=== PATIENT | female | born 2005 | race Two or more races ===

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

== ENCOUNTER 2025-01-03 05:11 | Inpatient (IN) | payer MEDICAID, SELFPAY ==
[2025-01-03] VITALS (251 sets, daily range): BP systolic 94–206; BP diastolic 51–106; PULSE 55–127; RESP 17–19; TEMP 36.5–36.9; O2SAT 88–100; BMI 25.3
[2025-01-03] MEDS: RINGERS LACTATED 1000 ML 1,000 ML 100 ML IV ×4 (05:38→13:07)
[2025-01-03 05:55] LABS: Basophils # (Auto) 0.1 Thou/mm3 (0.0-0.2); Basophils % (Auto) 1 % (0-2.5); Eosinophils # (Auto) 0.3 Thou/mm3 (0.0-0.5); Eosinophils % (Auto) 3 % (0-10); Hematocrit 28.2 % (36.0-46.0); Hemoglobin 9.0 g/dL (12.0-16.0); Immature Granulocytes Auto 0.04 Thou/mm3 (0.00-0.00); Lymphocytes # (Auto) 2.6 Thou/mm3 (1.0-4.8); Lymphocytes % (Auto) 30 % (10-50); Mean Corpuscular HGB Conc 31.9 g/dl (31.0-37.0); Mean Corpuscular Hemoglobin 26.5 pg (25.0-35.0); Mean Corpuscular Volume 83 fL (80-100); Monocytes # (Auto) 0.6 Thou/mm3 (0.0-0.8); Monocytes % (Auto) 7 % (0-12); Neutrophils # (Auto) 4.9 Thou/mm3 (1.8-7.7); Neutrophils % (Auto) 58 % (37-80); Nucleated Red Blood Cell # 0.00 Thou/mm3 (0.00-0.00); Nucleated Red Blood Cell % 0 /100 WBC (0); Platelet Count 376 Thou/mm3 (140-440); RDW Standard Deviation 48.1 fL (36.4-46.3); Red Blood Count 3.39 Miln/mm3 (4.00-5.20); White Blood Count 8.4 Thou/mm3 (4.5-11.0)
[2025-01-03 06:11] LABS: Amphetamine/Metham Scrn,Ur OB Negative (Negative); Benzoylecgonine Screen, Ur OB Negative (Negative); Opiate Screen,Urine OB Negative (Negative); THC Screen,Urine OB Negative (Negative)
[2025-01-03 06:43] LABS: Syphilis Nonreactive (Nonreactive)
--- NOTE | 2025-01-03 07:57 | PD.LDHP ---
Documentation for date of: 01/03/25 OB Labor/Induct. HPI History of Present Illness : 1 Term pregnancies: 0 pregnancies: 0 Living children: 0 History of Abortions: Spontaneous and Elective: 0 History of sections: No History of : No Date of last menstrual period: 04/05/24 JOHN: 01/10/25 Gestational age based on last menstrual period: 39 History of present illness: H and P dictated on STAT line #9 in [employer] : [id number] Labs Labs: Positive: Rubella Titre, Negative: RPR, Hepatitis B, HIV, Chlamydia, Gonorrhea and Group Beta Strep and Unknown: Herpes Type 1, Herpes Type 2 and Covid-19 Past Medical History Surgical History SURGICAL: Negative Section Meds Home Medications and Allergies Home Medications ?Medication ?Instructions ?Recorded ?Confirmed ?Type acetaminophen 325 mg tablet 325 mg PO Q6H PRN pain 12/21/24 01/03/25 History (Aminofen) Held on 01/03/25. Instructions: patient states she is currently not taking vitamins with calcium 1 tab PO Q24H 12/26/24 01/03/25 History no.72-iron 27 mg-folic acid 1 mg tablet ( Plus (calcium carbonate)) Allergies Allergy/AdvReac Type Severity Reaction Status Date / Time No Known Allergies Allergy Verified 12/26/24 00:15 OB Exam Physical Exam Vital signs: Temp Pulse Resp BP Pulse Ox 97.9 F 63 18 124/82 100 01/03/25 07:10 01/03/25 07:26 01/03/25 07:10 01/03/25 07:26 01/03/25 07:56 OB Results Labs 01/03/25 05:35 Labs: Short CBC 01/03/25 Range/Units 05:35 WBC 8.4 (4.5-11.0) Thou/mm3 Hgb 9.0 L (12.0-16.0) g/dL Hct 28.2 L (36.0-46.0) % Plt Count 376 D (140-440) Thou/mm3
--- NOTE | 2025-01-03 12:10 | PD.LDPN ---
Documentation for date of: 01/03/25 OB Labor Progress Note Pain Control Comments: None Pelvic Exam Dilation (cm): 6.0 Effacement (%): 80 station: -1 Amniotic membrane status: Ruptured Comments: Clear fluid Contractions Monitor mode: External Contraction frequency: 1-3.5 Contraction intensity: Mild Status status: Category l Assessment and Plan Comments: Active Labor Anticipate
--- NOTE | 2025-01-03 14:56 | PD.LDPN ---
Documentation for date of: 01/03/25 OB Labor Progress Note Pain Control Comments: Epidural Pelvic Exam Dilation (cm): 8 Effacement (%): 80 station: +1 Amniotic membrane status: Ruptured Contractions Monitor mode: External Contraction frequency: 2-3 Contraction intensity: Strong Status status: Category ll Comments: Accelerate with scalp stimulation Assessment and Plan Comments: IUPC placed for amnioinfusion Adequate MVUs FSE applied Variability present Anticipate .
[2025-01-03] MEDS: LIDOCAINE HCL 1% 20 ML VIAL INFL (16:21)
[2025-01-03] MEDS: MINERAL OIL 30 ML UDC TOP (16:21)
[2025-01-03] MEDS: IBUPROFEN TAB 400 MG TABLET 800 MG PO (16:21)
[2025-01-03] MEDS: BENZO/LANO/ALOE (Dermoplast) 60 GM CAN 1 SPRAY TOP (16:21)
[2025-01-03] MEDS: OXYTOCIN in NS 20 units 20 UNIT/1,000 ML BAG 125 UNIT IV ×2 (16:22→21:48)
--- NOTE | 2025-01-03 18:17 | OBDSUM_ITS ---
Data ([facility]) Data Hx Section: No : 1 Term: 0 : 0 Livin Abortions: Spontaneous & Theraputic: 0 Delivery Data ([facility]iz[place]) Labor Data Initiation of labor: Induction Induction/Augmentation Agent: Cytotec-PO and Artificial ROM ROM date: 01/03/25 ROM time: 12:09 Amniotic membrane rupture type: Artificial Amniotic fluid description: Clear Delivery Data EDC: 01/10/25 EDC calculated by:: LMP/early US confirmation Onset of labor date: 01/03/25 Onset of labor time: 13:00 Complete dilation date: 01/03/25 Complete dilation time: 15:34 [place] delivery date: 01/03/25 delivery time: 15:55 Gestational age (weeks): 39 Gestational age (days): 0 Placenta delivery date: 01/03/25 Placenta delivery time: 16:04 Stage 1 total time: Labor - Stage 1 Duration 2 hours and 34 minutes Delivered by: Chadwick Mcbride Delivery nurse: LE Villalta Neworn nurse: LE Maldonado Director Of Human Resources at delivery: No Support person(s) at delivery: FOB Other staff at delivery: LE [place] Delivery Method Delivery method: Normal Vaginal Delivery Presentation: Vertex Anesthesia Type Anesthesia Type: Local and Epidural Placenta Placenta delivery description: Spontaneous Cord blood sent to lab: Yes cord blood collection: Cord Blood Type Lacerations #1: Perineal: 2nd degree Perineal repair Sutures used for repair: 3.0 Chromic EBL Estimated blood loss (ml): 150 Complications Complications: None [place] Data (Elizalde) [place] Data order: 1 's gender: Female weight (gms): 5 lb 14.181 oz Weight (pounds): 5 lbs and 14.2 ozs 1 minute: 9 5 minutes: 9
--- NOTE | 2025-01-03 18:19 | PD.LDDS ---
DS: Providers Provider Date of admission: 01/03/25 05:11 Primary care physician: Physician No Primary/Family Admitting Provider: Chadwick Mcbride MD Attending Provider on Admission: Chadwick Mcbride MD Attending Provider on DC: Chadwick Mcbride MD Discharging Provider: Chadwick Mcbride MD DS: Diagnosis Problem List Completed Was Problem List Reviewed/Reconciled?: Yes Summary/Hosp Course Brief History: H and P dictated on STAT line #9 in [employer] : [id number] Peripartum Data Delivery Method: Normal Vaginal Delivery Laceration Description: see Delivery Summary 1: Disposition of : home Time Spent with Patient Time attestation: Total time spent providing and/or coordinating discharge services: Exam Vital Signs Temp Pulse Resp BP Pulse Ox O2 Del Method 98.1 F 73 17 117/76 99 Room Air 01/03/25 18:00 01/03/25 18:12 01/03/25 18:00 01/03/25 18:12 01/03/25 18:18 01/03/25 18:00 Discharge Plan Plan Patient Disposition: HOME (Self Care) Patient condition on transfer: Stable Prescriptions/Referrals Prescriptions/Med Rec: New ibuprofen 600 mg tablet 600 mg PO QID PRN (Reason: pain) Qty: 30 0RF Continued Plus (calcium carb) 27 mg iron- 1 mg tablet 1 tab PO Q24H Patient Comments: Take 1 tablet by mouth once a day Discontinued pantoprazole 40 mg tablet,delayed release (DR/EC) 40 mg PO QDAY 30 Days Qty: 30 1RF acetaminophen [Aminofen] 325 mg tablet 325 mg PO Q6H PRN (Reason: pain) Referrals: No Primary/Family,Physician [Primary Care Provider] Patient/Caregiver Discharge Instructions Discharge Activity: activity as tolerated Other Discharge Activity Instructions:: Follow up office 6 weeks. Print Language: Indonesian Stand Alone Forms: Irina Award Info., Patient Portal Info Letter Discharge Order Discharge Orders: Discharge (Routine); Ordered 01/04/25 Ordered By: Chadwick Mcbride Planned Discharge Date 01/04/25
--- NOTE | 2025-01-03 19:39 | PC.NURSE ---
Assisted patient with perineal care, changed gown, urine output of 700 cc. Accompanied patient, ambulated and move to room 465 with all her belongings. Attended needs and provided safety and comfort.
[2025-01-03 22:27] LABS: Basophils # (Auto) 0.1 Thou/mm3 (0.0-0.2); Basophils % (Auto) 0 % (0-2.5); Eosinophils # (Auto) 0.0 Thou/mm3 (0.0-0.5); Eosinophils % (Auto) 0 % (0-10); Hematocrit 27.1 % (36.0-46.0); Immature Granulocytes Auto 0.07 Thou/mm3 (0.00-0.00); Lymphocytes # (Auto) 2.1 Thou/mm3 (1.0-4.8); Lymphocytes % (Auto) 13 % (10-50); Mean Corpuscular HGB Conc 31.7 g/dl (31.0-37.0); Mean Corpuscular Hemoglobin 26.1 pg (25.0-35.0); Mean Corpuscular Volume 82 fL (80-100); Monocytes # (Auto) 1.0 Thou/mm3 (0.0-0.8); Monocytes % (Auto) 6 % (0-12); Neutrophils # (Auto) 12.5 Thou/mm3 (1.8-7.7); Neutrophils % (Auto) 80 % (37-80); Nucleated Red Blood Cell # 0.00 Thou/mm3 (0.00-0.00); Nucleated Red Blood Cell % 0 /100 WBC (0); Platelet Count 301 Thou/mm3 (140-440); RDW Standard Deviation 47.3 fL (36.4-46.3); Red Blood Count 3.30 Miln/mm3 (4.00-5.20); White Blood Count 15.8 Thou/mm3 (4.5-11.0)
[2025-01-03 22:28] LABS: Hemoglobin 8.6 g/dL (12.0-16.0)
[2025-01-04 00:30] VITALS: PULSE 69; RESP 18; TEMP 37.2; O2SAT 98
[2025-01-04 03:35] VITALS: BP 119/71; PULSE 85; RESP 18; TEMP 36.9; O2SAT 98
[2025-01-04] MEDS: IBUPROFEN TAB 400 MG TABLET 800 MG PO (04:01)
[2025-01-04 08:00] VITALS: BP 111/70; PULSE 87; RESP 16; TEMP 36.8; O2SAT 98
--- NOTE | 2025-01-04 09:01 | ESPR_ITS ---
RE: ADRIANA TORRES : 2005 DATE OF SERVICE: 01/04/2025 SUBJECTIVE: day #1, the patient denies any problem or complaint. She is voiding and ambulating and tolerating a regular diet and passing flatus. She denies any excessive vaginal bleeding. She denies any dizziness or lightheadedness. She denies any chest pain, palpitations, shortness of breath, or lower extremity pain. OBJECTIVE: Vital Signs: Blood pressure 119/71, heart rate 85, respirations 18, temperature 98.5, pulse oximetry is 98% on room air. Lungs: Clear to auscultation bilaterally. Heart: Regular rate and rhythm. Abdomen: Fundus is firm. Extremities: Nontender. LABORATORY DATA: Hemoglobin pre-delivery is 9, post delivery is 8.6. ASSESSMENT: day #1, status post spontaneous vaginal delivery. PLAN: Discharge home when baby is cleared. Discharge instructions were given. Follow up in the office in 6 weeks. Continue iron upon discharge. DT: 07:25:00 TT: 08:47:00 Ref: [id number] - TID: [id number] MTDD
--- NOTE | 2025-01-04 11:06 | PC.CC ---
Kalie Ybarra is a 20-year-old female admitted for labor and delivery care. Ethics Manager made contact with Pt at bedside to complete ob assessment and discuss discharge disposition. Role and reason for the contact was explained to Pt. Demographic information was verified. Pt identified father of baby Jhonatan Mtz as surrogate decision maker. Pt is independent with all ADLs, no source of DME. PCP is [facility]. At time of discharge patient will return home, FOB will provide transportation. Mother plans on formula feeing, has car seat, and all supplies for baby. Mother denies any use of substance, no DV, no CPS. Mother reports support system provided by extended family and FOB. Discharge Plan: Home Next of Kin: Jhonatan Mtz PCP: [facility]
[2025-01-04 11:40] VITALS: BP 101/59; PULSE 73; RESP 16; TEMP 36.5; O2SAT 98
[2025-01-04 16:00] VITALS: BP 100/65; PULSE 85; RESP 17; TEMP 36.5; O2SAT 98
--- NOTE | 2025-01-05 08:58 | ESHP_ITS ---
RE: ADRIANA TORRES : 2005 DATE OF ADMISSION: 01/03/2025 HISTORY OF PRESENT ILLNESS: This is a 20-year-old 1, para 0 with due date of 01/10/2025 with intrauterine at 39 weeks and 0 days, who presents for induction of labor. The patient's ultrasound shows overall growth at the 13th percentile with an abdominal circumference at the 4th percentile. Her care was complicated by iron deficiency anemia. Her admitting hemoglobin is 9.0. She was treated for chlamydia infection during her in 06/2024. Also was treated for urinary tract infection due to E. coli in 07/2024. ALLERGIES: NO KNOWN DRUG ALLERGIES. MEDICATIONS: 1. multivitamin 1 p.o. daily. 2. Aspirin 81 mg 1 p.o. daily. 3. Ferrous sulfate 325 mg 1 p.o. b.i.d. PAST MEDICAL HISTORY: Chlamydia, E. coli urinary tract infection, iron deficiency anemia. SOCIAL HISTORY: She denies any alcohol, drug use, or smoking. FAMILY HISTORY: Hypertension. PAST SURGICAL HISTORY: Denies. REVIEW OF SYSTEMS: She denies any chest pain, palpitations, cough, fever, shortness of breath, flank pain, or lower extremity pain. PHYSICAL EXAMINATION: VITAL SIGNS: Blood pressure 119/78, heart rate 88, respirations 18, temperature 98.2. Weight 149 pounds. HEENT: Oropharynx and sclerae are clear. LUNGS: Clear to auscultation bilaterally. HEART: Regular rate and rhythm. ABDOMEN: Gravid consistent with estimated weight of 7 pounds. PELVIC: See RN notes. EXTREMITIES: Nontender. SKIN: No gross rashes or lesions. NEUROLOGIC: No focal deficit. ASSESSMENT AND PLAN: Intrauterine at 39 weeks and 0 days, borderline, small for gestational age, induction of labor. Anticipate spontaneous vaginal delivery. Informed consent was obtained. The patient was made aware of the risks, complications, alternatives, and benefits of operative vaginal delivery and delivery and agrees with these modes of delivery if indicated. DT: 07:55:27 TT: 09:35:00 Ref: [id number] - TID: [id number]
== END 2025-01-04 18:15 | disposition home or self-care (01) | DRG 560 ==
LOC: S4SX 16:10 → S4NX 19:31
PROVIDERS: Admitting Provider Specialist; Visit Provider Specialist
DX: O99.02 Anemia complicating childbirth (principal); D50.9 Iron deficiency anemia, unspecified; O70.1 Second degree perineal laceration during delivery; Z37.0 Single live birth; Z3A.39 39 weeks gestation of pregnancy; Z79.82 Long term (current) use of aspirin
CPT/HCPCS: 36415; 59409; 80307; 85025; 86780; 86850; 86900; 86901; 86923; 94762; J2590; J2795; J3010; J3490; J7120; A9270